=== PATIENT | female | born 1935 | race Caucasian/White ===

== ENCOUNTER 2022-05-27 13:08 | Observation (INO) | payer MEDICARE ==
--- NOTE | 2022-05-27 15:21 | XR ---
Left ankle. HISTORY: Pain following trauma. COMPARISON: None. TECHNIQUE: 3 views left ankle were obtained. FINDINGS: The osseous structures are mildly diffusely osteopenic. There is an oblique mildly displaced fracture of the distal left tibial metaphysis. The ankle mortise is intact as is the visualized portion of the fibula. The tarsal bones examination are normal IMPRESSION: Fracture of the distal left tibia as described above.
--- NOTE | 2022-05-27 15:23 | XR ---
Left knee: HISTORY: Pain following trauma. COMPARISON: None. TECHNIQUE: 3 views left knee were obtained. FINDINGS: There is mild diffuse osteopenia. There are numerous metallic clips soft tissues there is soft tissue swelling. There is a minimally displaced fracture the proximal left fibula there is a small joint effusion. The re is mild narrowing of the medial compartment. IMPRESSION: Acute fracture the proximal left fibula with soft tissue swelling and small joint effusion.
--- NOTE | 2022-05-27 17:07 | CT ---
EXAMINATION TYPE: CT brain judithine wo con DATE OF EXAM: 05/27/2022 History: Fall COMPARISON: None TECHNIQUE: CT scan of the head and cervical spine are performed without contrast.CT DLP: 1284.8 mGycm Automated exposure control for dose reduction was used. FINDINGS: There is no acute intracranial hemorrhage, mass effect, or midline shift identified. The ventricles and sulci are within normal limits for the patient's age.. The globes are intact and the visualized sinuses are clear.There is age-appropriate atrophy and moderate chronic ischemic white ma tter demyelination Cervical spine is visualized in its entirety from C1 through upper thoracic levels and demonstrates s atisfactory alignment without evidence of acute fracture or dislocation. Prevertebral soft tissue ap pears within normal limits. The C1-C2 articulation is unremarkable. There is mild to moderate arthr itic changes involving the uncovertebral joints and facet joints. IMPRESSION: 1. There is no acute fracture or dislocation evident in the cervical spine. 2. No acute intracranial hemorrhage, mass effect, or midline shift is seen.
[2022-05-27] MEDS ORDERED: NALOXONE 0.4 MG/ML 1 ML VIAL IV PRN (17:35)
[2022-05-27] MEDS ORDERED: ACETAMINOPHEN TAB 325 MG TAB PO PRN (17:35)
--- NOTE | 2022-05-27 17:44 | ED ---
Fall HPI - General Chief Complaint: Fall Stated Complaint: fall Time Seen by Provider: 05/27/22 14:16 Source: patient Mode of arrival: ambulatory - History of Present Illness Initial Comments: Patient is an 87-year-old female presenting with chief complaint of left leg pain. Patient states that last night she slipped while walking on the stairs and fell down approximately 8 stairs. There was no loss of consciousness and patient denies the use of blood thinners. Patient has no headache or neck pain today. No nausea or vomiting. No vision or hearing changes. No dizziness. No weakness, numbness, tingling. Patient is complaining of pain mainly at the left ankle and left knee. She admits to bruising and swelling. Patient lives at home by herself but has friends who come to visit. She denies any chest pain, shortness of breath, fever, chills, nausea, vomiting, abdominal pain, dysuria, hematuria. - Related Data Home Medications Medication Instructions Recorded Confirmed ALPRAZolam [Xanax] 0.25 mg PO TID PRN 05/27/22 05/27/22 Acetaminophen Tab [Tylenol Tab] 1,000 - 1,500 mg PO HS 05/27/22 05/27/22 Aspirin EC [Ecotrin Low Dose] 81 mg PO HS 05/27/22 05/27/22 Levothyroxine Sodium [Synthroid] 88 mcg PO DAILY 05/27/22 05/27/22 Propranolol HCl [Propranolol HCl 80 mg PO DAILY 05/27/22 05/27/22 ER] Allergies Allergy/AdvReac Type Severity Reaction Status Date / Time chocolate flavor AdvReac Nausea & Verified 05/27/22 13:38 Vomiting Review of Systems ROS Statement: Those systems with pertinent positive or pertinent negative responses have been documented in the HPI. ROS Other: All systems not noted in ROS Statement are negative. Past Medical History Past Medical History: Hyperlipidemia, Myocardial Infarction ([place]), Thyroid Disorder History of Any Multi-Drug Resistant Organisms: None Reported Past Surgical History: Coronary Bypass/CABG Additional Past Surgical History / Comment(s): 01/23/2008 trible bypass Past Psychological History: No Psychological Hx Reported Smoking Status: Never smoker Past Alcohol Use History: None Reported Past Drug Use History: None Reported General Exam Limitations: no limitations General appearance: alert, in no apparent distress Head exam: Present: atraumatic, normocephalic, normal inspection Eye exam: Present: normal appearance, EOMI. Absent: scleral icterus, periorbital swelling Neck exam: Present: normal inspection Respiratory exam: Present: normal lung sounds bilaterally. Absent: respiratory distress, wheezes, rales, rhonchi, stridor Cardiovascular Exam: Present: regular rate, normal rhythm, normal heart sounds. Absent: systolic murmur, diastolic murmur, rubs, gallop, clicks Left Knee exam: Present: tenderness, swelling, ecchymosis. Absent: full ROM Ankle exam: Present: tenderness, swelling, ecchymosis. Absent: full ROM Foot/Toe exam: Present: tenderness, swelling, ecchymosis. Absent: full ROM Neurovascular tendon exam: Present: no vascular compromise. Absent: sensory deficit Neurological exam: Present: alert, oriented X3, CN II-XII intact Psychiatric exam: Present: normal affect, normal mood Skin exam: Present: warm, dry, intact. Absent: rash Course Vital Signs 05/27/22 13:33 Temperature 98.1 F Pulse Rate 87 Respiratory 16 Rate Blood Pressure 127/77 O2 Sat by Pulse 98 Oximetry Medical Decision Making - Medical Decision Making Patient is an 87-year-old female presenting with chief complaint of left leg pain. Patient slipped and fell down some stairs in her home last night. No loss of consciousness or use of blood thinners. On examination there are no focal neurological deficits, the left ankle and knee are noted to be swollen, tender, and bruised. CT of the brain and cervical spine shows no acute process. X-rays show fracture of the proximal fibula minimally displaced and distal tibia minimally displaced. Patient is placed in a posterior leg splint, given that the patient lives by herself I do not think it would be safe to discharge her home at this time. I spoke with Dr. Avalos who agreed to admit the patient. I consulted Dr. Bob for medical management. I discussed these findings and the plan with the patient, she was agreeable. I discussed this case with my attending Dr. Bermudez. Disposition Clinical Impression: Fracture, fibula, proximal, Fracture of distal end of tibia Disposition: ADMITTED IP TO THIS [facility] Condition: Fair Time of Disposition: 17:44 Decision to Admit Reason: Admit from Decision Date: 05/27/22 Decision Time: 17:44
[2022-05-27] MEDS: MORPHINE SULFATE 4 MG/ML SYRINGE IV PRN (18:07)
--- NOTE | 2022-05-28 10:00 | P.HPOR ---
History of Present Illness H&P Date: 05/28/22 This patient is an 87-year-old female with a past medical history of triple bypass that presented to [facility] emergency department yesterday with complaints of left lower leg pain after a fall at home. The patient states she fell down her back stairs Sunday evening. She has been experiencing significant left lower leg pain since the fall. She presented to [facility] emergency department and x-rays were taken and revealed a left distal tibia fracture. Patient states she did hit her head when she fell, although CT of the head and neck revealed no acute fracture of cervical spine, no acute intracranial hemorrhage. Patient was admitted under the care of Dr. Avalos with a consult placed to internal medicine for medical management. Patient is examined bedside this morning. She is complaining of isolated left lower leg pain. She is currently in a splint that was placed in the emergency department. She states her pain is well-controlled at this time. She has no additional complaints or concerns. She does live along although two friends visit very regularly. She denies numbness or tingling of left lower extremity. Vital signs stable. Past Medical History Past Medical History: Hyperlipidemia, Myocardial Infarction ([place]), Thyroid Disorder Last Myocardial Infarction Date:: 09/28/2007 History of Any Multi-Drug Resistant Organisms: None Reported Past Surgical History: Coronary Bypass/CABG Additional Past Surgical History / Comment(s): 01/23/2008 trible bypass Past Psychological History: No Psychological Hx Reported Smoking Status: Never smoker Past Alcohol Use History: None Reported Past Drug Use History: None Reported Medications and Allergies Home Medications Medication Instructions Recorded Confirmed Type ALPRAZolam [Xanax] 0.25 mg PO TID PRN 05/27/22 05/27/22 History Acetaminophen Tab [Tylenol Tab] 1,000 - 1,500 mg PO HS 05/27/22 05/27/22 History Aspirin EC [Ecotrin Low Dose] 81 mg PO HS 05/27/22 05/27/22 History Levothyroxine Sodium [Synthroid] 88 mcg PO DAILY 05/27/22 05/27/22 History Propranolol HCl [Propranolol HCl 80 mg PO DAILY 05/27/22 05/27/22 History ER] Allergies Allergy/AdvReac Type Severity Reaction Status Date / Time chocolate flavor AdvReac Nausea & Verified 05/27/22 13:38 Vomiting Physical Examination On examination, patient is sitting up in bed in no apparent distress. She is alert and oriented 3. Her head appears normocephalic and atraumatic. Her breathing appears nonlabored. On inspection of her bilateral upper extremities, there are no obvious deformity or signs of trauma. On inspection of her right lower extremity, no obvious deformities or signs of trauma. On inspection the left lower extremity, there is a superficial abrasion at the anterior knee. There is a short-leg splint in place. The visible portion of the toes are warm and well-perfused with brisk capillary refill. Dorsalis pedis pulse easily palpable. Patient is able to wiggle her toes appropriately. No pain with passive range of motion of the toes. No pain with passive [id number] of the bilateral hips. Results Left ankle x-ray 05/27/22: Mildly displaced distal third tibia fracture Left knee x-ray 05/27/22: Mildly displaced proximal fibula fracture. No additional fractures identified. Assessment and Plan Assessment: Left distal third tibia fracture Left proximal fibula fracture Plan: - The clinical and imaging findings were discussed with the patient. The patient was discussed with Dr. Avalos. Recommended ORIF of the left distal tibia tomorrow morning, pending medical clearance and consent. - Keep current splint in place. Ice, elevation left leg for swelling and pain control. Strict nonweightbearing left lower extremity. - Pain management as needed. [place] 5/325mg added. - Internal medicine consultation for preoperative medical clearance. - NPO diet at midnight.
[2022-05-28] MEDS: HYDROcodone/APAP 5-325MG 1 EACH TAB PO PRN ×2 (11:00→16:42)
[2022-05-28 11:54] LABS: African American GFR (CKD) >90 (>60 ml/min/1.73 sqM); Anion Gap 10 mmol/L; Blood Urea Nitrogen 16 mg/dL (7-17); Calcium 8.9 mg/dL (8.4-10.2); Carbon Dioxide 26 mmol/L (22-30); Chloride 100 mmol/L (98-107); Glucose 100 mg/dL (74-99); Non-African American GFR(CKD) 82 (>60 ml/min/1.73 sqM); Potassium 3.9 mmol/L (3.5-5.1); Sodium 136 mmol/L (137-145)
[2022-05-28] MEDS ORDERED: ALPRAZolam 0.25 MG TAB PO PRN (12:01)
[2022-05-28 12:05] LABS: Basophils % (A) 0 %; Eosinophils # (A) 0.4 k/uL (0-0.7); Eosinophils % (A) 5 %; HCT 36.1 % (34.0-46.0); HGB 11.9 gm/dL (11.4-16.0); Lymphocytes # (A) 1.2 k/uL (1.0-4.8); Lymphocytes % (A) 18 %; MCH 35.3 pg (25.0-35.0); MCHC 32.9 g/dL (31.0-37.0); MCV 107.2 fL (80.0-100.0); Macrocytosis Moderate; Mean Platelet Volume 7.5; Monocytes # (A) 0.3 k/uL (0-1.0); Monocytes % (A) 5 %; Neutrophils # (A) 4.9 k/uL (1.3-7.7); Neutrophils % (A) 70 %; Platelet Count 228 k/uL (150-450); RBC 3.37 m/uL (3.80-5.40); RDW 11.8 % (11.5-15.5)
[2022-05-28] MEDS: ENOXAPARIN 40 MG/0.4 ML SYRINGE SQ SCH (13:01)
--- NOTE | 2022-05-28 14:00 | XR ---
EXAMINATION TYPE: XR chest 1V portable DATE OF EXAM: 05/28/2022 1:50 PM COMPARISON: Chest radiographs from 04/18/2013. TECHNIQUE: XR chest 1V portable Frontal view of the chest. CLINICAL INDICATION:Female, 87 years old with history of pre-op; FINDINGS: Lungs/Pleura: There is no evidence of pleural effusion, focal consolidation, or pneumothorax. Pulmonary vascularity: Unremarkable. Heart/mediastinum: Cardiomediastinal silhouette is enlarged and stable. Atherosclerotic calcificatio ns are seen in the aorta. Postoperative changes of mediastinal with surgical clips identified. Epicar dial leads identified. Musculoskeletal: No acute osseous pathology. Midline sternotomy wires are noted and stable. IMPRESSION: 1. No acute cardiopulmonary disease/process. 2. Cardiomegaly with postoperative changes.
--- NOTE | 2022-05-28 17:38 | P.CONS ---
History of Present Illness - Reason for Consult Consult date: 05/28/22 Medical management Requesting physician: Tomás Avalos - Chief Complaint Fall - History of Present Illness This is a very pleasant 87-year-old patient, follows with Dr. Carlton. Chronic stable medical conditions include CAD with a prior history of coronary bypass in 2007, hypothyroid, hyperlipidemia, chronic gait dysfunction uses a walker. Chronic tremors Patient took a misstep" down the stairs about 8 stairs. Did not lose consciousness or hit her head. As a result patient has acute fracture of the proximal left fibula with fracture of the distal left tibia soft tissue swelling in small joint effusion. Patient is covered. Of the left leg. Swelling of the left knee. Patient is able to get from the house with a walker. Some shortness of breath on getting up the stairs. No chest pain. Review of systems: GEN.: Tired EYES: None HEENT: Decreased hearing NECK: None RESPIRATORY: None CARDIOVASCULAR: None GASTROINTESTINAL: None GENITOURINARY: None MUSCULOSKELETAL: Joint pains LYMPHATICS: None HEMATOLOGICAL: None PSYCHIATRY: None NEUROLOGICAL: Uses a walker Past medical history to include: CAD with history of bypass in 2007, hypothyroid, hyperlipidemia, uses a walker, hard of hearing, tremors Social history: No history of smoking or alcohol. Sometimes a friend called Pito lives with her. Physical examination: VITAL SIGNS: 98.7, 99, 17, 118/61, 95% room air GENERAL: BMI 22.3, sitting up but awake not in distress. EYES: Pupils equal. Conjunctiva normal. HEENT: External appearance of nose and ears normal, oral cavity grossly normal. Decreased hearing NECK: JVD not raised; masses not palpable. HEART: First and second heart sounds are normal; no edema. LUNGS: Respiratory rate normal; clear to auscultation. ABDOMEN: Soft, nontender, liver spleen not palpable, no masses palpable. PSYCH: Alert and oriented x3; mood and affect normal. MUSCULOSKELETAL:No Clubbing/cyanosis;muscles-grossly intact. Dressing over the left lower extremity. Swelling of the left knee. Evidence of OA NEUROLOGICAL: Cranial nerves grossly intact; no facial asymmetry, power and sensation grossly intact. LYMPHATICS: No lymph nodes palpable in the axilla and neck INVESTIGATIONS, reviewed in the clinical context: WBC 7 hemoglobin 11.9 platelets 228 potassium 3.9 creatinine 0.64 EKG tracing personally reviewed by me: Normal sinus rhythm. Nonspecific T-wave changes. Chest x-ray film personally reviewed by me-some cardiomegaly Ankle x-ray: Fracture distal left tibia. X-ray left knee: Acute fracture of the proximal left fibula with soft tissue swelling. Small joint effusion. CT brain/C-spine without contrast: Negative Assessment and plan: -Left distal tibia fracture left proximal fibula fracture secondary to mechanical fall. Left leg in an Jasiel wrap. Patient due for surgery tomorrow. -Left knee effusion secondary to trauma, secondary to fall -Primary osteogenic multiple joints bilateral Pain control -CAD with a prior history of coronary bypass in 2007. Continue aspirin. No active cardiac symptoms. Continue propranolol ER. 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 Resume home medications. Subcu Lovenox fo r DVT prophylaxis. Pain control. Perioperative cardiovascular risk assessment.: Patient has somewhat limited exercise tolerance. Has known CAD. No active cardiac symptoms. Continue with aspirin. On a beta soledad to continue. Patient is a moderate risk for surgery. No coronary medications. Stable to proceed with surgery. Discussed with patient. Thank you Dr. Avalos Past Medical History Past Medical History: Hyperlipidemia, Myocardial Infarction ([place]), Thyroid Disorder Last Myocardial Infarction Date:: 09/28/2007 History of Any Multi-Drug Resistant Organisms: None Reported Past Surgical History: Coronary Bypass/CABG Additional Past Surgical History / Comment(s): 01/23/2008 trible bypass Past Psychological History: No Psychological Hx Reported Smoking Status: Never smoker Past Alcohol Use History: None Reported Past Drug Use History: None Reported Medications and Allergies Home Medications Medication Instructions Recorded Confirmed Type ALPRAZolam [Xanax] 0.25 mg PO TID PRN 05/27/22 05/27/22 History Acetaminophen Tab [Tylenol Tab] 1,000 - 1,500 mg PO HS 05/27/22 05/27/22 History Aspirin EC [Ecotrin Low Dose] 81 mg PO HS 05/27/22 05/27/22 History Levothyroxine Sodium [Synthroid] 88 mcg PO DAILY 05/27/22 05/27/22 History Propranolol HCl [Propranolol HCl 80 mg PO DAILY 05/27/22 05/27/22 History ER] Allergies Allergy/AdvReac Type Severity Reaction Status Date / Time chocolate flavor AdvReac Nausea & Verified 05/27/22 13:38 Vomiting Physical Exam Vitals: Vital Signs Temp Pulse Pulse Resp BP BP Pulse Ox 05/28/22 08:00 98.7 F 99 17 118/61 95 05/28/22 01:54 97.8 F 92 17 138/78 98 05/27/22 20:30 97.4 F L 103 H 17 135/78 96 05/27/22 13:33 98.1 F 87 16 127/77 98 Intake and Output 05/27/22 05/28/22 05/28/22 22:59 06:59 14:59 Intake Total 240 Balance 240 Intake: Oral 240 Other: Voiding Method Toilet Toilet Bedpan # Voids 1 Weight 57.153 kg Results CBC & Chem 7: 05/28/22 11:28 05/28/22 11:28
[2022-05-28] MEDS ORDERED: ASPIRIN 81 MG PO SCH (21:00)
[2022-05-28] MEDS: MORPHINE SULFATE 4 MG/ML SYRINGE IV PRN (22:14)
[2022-05-29] MEDS: LEVOTHYROXINE 88 MCG TAB PO SCH (05:53)
[2022-05-29] MEDS ORDERED: BUPIVACAINE (PF) 0.25% 30 ML VIAL SQ ONE ×2 (07:58→08:54)
[2022-05-29] MEDS ORDERED: PROPOFOL 10 MG/ML 20 ML VIAL IV ONE (08:12)
[2022-05-29] MEDS ORDERED: fentaNYL (PF) 50 MCG/ML 2 ML AMP ONE (08:12)
[2022-05-29] MEDS ORDERED: PHENYLEPHRINE-0.9% NACL SYG 1,000 MCG/10 ML SYRINGE ONE (08:12)
[2022-05-29] MEDS ORDERED: ONDANSETRON 4 MG/2 ML VIAL ONE (08:12)
[2022-05-29] MEDS ORDERED: LACTATED RINGERS 1,000 ML IV ONE (08:17)
[2022-05-29] MEDS ORDERED: SODIUM CHLORIDE 0.9% 100 ML with ceFAZolin 2,000 MG IV ONE ×2 (08:30)
[2022-05-29] MEDS ORDERED: PROPRANOLOL LA 80 MG CAP.SA.24H PO SCH (09:00)
--- NOTE | 2022-05-29 09:21 | P.OP ---
Date of Procedure: 05/29/22 Preoperative Diagnosis: Fracture left distal tibia Postoperative Diagnosis: 1. Spiral Fracture left distal tibia 2. Large effusion left knee Procedure(s) Performed: 1. Open reduction internal fixation left distal fibula 2. Aspiration left knee Implants: [employer] medial distal tibial plate with locking and nonlocking screws Anesthesia: spinal Surgeon: Tomás Avalos Hand Cloth Folder #1: Zafar Amato Estimated Blood Loss (ml): 10 Pathology: none sent Condition: stable Disposition: PACU Indications for Procedure: This is an 87-year-old female sustained a fracture of her left distal tibia with a fall at home. She presented emergency room and evaluated and admitted for surgical treatment. After discussing the surgical and nonsurgical treatment options with her at length she wished to proceed with open reduction and internal fixation of her left distal tibia and informed consent was obtained. Operative Findings: The operative findings are consistent with a spiral fracture of her left distal tibia and a large left knee effusion Description of Procedure: The patient was seen and evaluated in the preoperative area. The operative site was marked with a skin marker after the consent was reviewed. Patient was then brought to the operating room and given a spinal anesthetic by the anesthesia department. 2 g of Ancef were given intravenously preoperatively. A tourniquet was placed on left upper leg and the left lower extremity was then prepped and draped in usual sterile fashion. The left lower extremity was then exsanguinated and tourniquet insufflated to 250 mmHg. An anterior medial incision was made over the distal tibia with a skin sharp knife through the skin and subcutaneous tissue. Care was taken to avoid injuring the neurovascular structures on the medial aspect of the ankle. Incision was carried down to the fracture site which was readily visualized. The fracture was reduced and anterior medial plate was placed on the tibia with fluoroscopic x-rays confirming reduction of the fracture and placement of the plate. Screws, both locking and nonlocking were placed proximally and distally to the fracture site with excellent fixation. After all the screws been placed fluoroscopic x-rays confirmed reduction of the fracture and placement of the plate and screws. There area was then irrigated and the tourniquet was released. Hemostasis was obtained. Incision was closed with 3-0 Vicryl followed by nishi for the skin. At this time is noted very large effusion of the left knee and using an 18-gauge spinal needle the knee was aspirated. Only about 5 mL of blood was able to be aspirated, most likely due to the fact that blood is coagulated within the knee and able and unable to be aspirated. A sterile dressing was then applied to the surgical site, followed by well-padded and molded posterior splint. Patient was then transferred recovery room stable condition. The kindergarten instructional assistant AUGUSTINE Tatum was required due the complexity surgery and the need for skilled surgical tech for positioning, draping, closure, and splinting of the lower extremity. Due to the fact the patient has a very large left knee effusion with x-rays being negative, going to obtain a computed tomography scan of the left knee to rule out any occult fracture of the knee.
--- NOTE | 2022-05-29 09:27 | FL ---
Intraoperative/procedural fluoroscopic services were provided for left ankle ORIF. There is fixation plate with transverse screws involving the distal tibia. Hardware appears intact with appropriate ali gnment. Total fluoroscopy time is 12 seconds with a total of 2 submitted images to PACS. Please see t he operative note for further details.
[2022-05-29] MEDS ORDERED: HYDROmorphone 0.5 MG/0.5 ML SYRINGE IVP PRN ×3 (09:45)
[2022-05-29] MEDS ORDERED: SENNOSIDES-DOCUSATE SODIUM 1 EACH TAB PO PRN (09:45)
[2022-05-29] MEDS: ENOXAPARIN 40 MG/0.4 ML SYRINGE SQ SCH (10:02)
[2022-05-29] MEDS: HYDROcodone/APAP 5-325MG 1 EACH TAB PO PRN (11:25)
--- NOTE | 2022-05-29 14:41 | P.CRDCN ---
History of Present Illness History of present illness: This is Dr. 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 Her weight is less than 60 kg creatinine is normal and she is 87 years old Stop aspirin 325 mg by mouth twice a day Increase propranolol 120 mg by mouth daily long-acting TSH level II-D echo and Doppler study Atorvastatin 20 mg daily HPI patient presents with a fall, no syncope She presents with a left distal third tibia fracture and left proximal fibular fracture Status post ORIF Preoperatively she was in sinus rhythm/sinus tachycardia PACs Intraoperatively she went to atrial fibrillation with RVR Patient denies any chest discomfort or shortness of breath or dizziness lightheadedness or palpitations at this time She looks very comfortable She remains in atrial fibrillation with a controlled ventricular response She normally takes propranolol long-acting 80 mg by mouth daily She states she was on Coumadin the past for this. She takes only aspirin now She states this is the first time she has fallen First 12-lead EKG showed sinus mechanism with PACs Normal AR interval Fractionated QRS on the downslope in V1-V3/notching Fractionated QRS V4 through V6 Likely old anterior wall infarct ROS: No fever chills or rigors, no cough, phlegm or expectoration, no nausea, vomiting or diarrhea, no hematuria, dysuria, no musculoskeletal complaints, no strokes or seizures, no skin lesions. EXAMINATION: Initially arteries went up to 132 140 beats a minute Now her heart rates at about 100 beats a minute irregular Blood pressure 120/79 mmHg Normal breath sounds no rhonchi no crackles Heart sounds irregular no murmurs Splinted left lower extremity REVIEW OF LABS, ECG & MEDICAL DATA White count 7.0, hemoglobin 11.9, platelet count 228,000 Sodium 136, potassium 3.9 BUN 16 creatinine 0.6 Past Medical History Past Medical History: Hyperlipidemia, Myocardial Infarction (MD), Thyroid Disorder Last Myocardial Infarction Date:: 09/28/2007 History of Any Multi-Drug Resistant Organisms: None Reported Past Surgical History: Coronary Bypass/CABG Additional Past Surgical History / Comment(s): 01/23/2008 trible bypass Past Psychological History: No Psychological Hx Reported Smoking Status: Never smoker Past Alcohol Use History: None Reported Past Drug Use History: None Reported Medications and Allergies Home Medications Medication Instructions Recorded Confirmed Type ALPRAZolam [Xanax] 0.25 mg PO TID PRN 05/27/22 05/27/22 History Acetaminophen Tab [Tylenol Tab] 1,000 - 1,500 mg PO HS 05/27/22 05/27/22 History Aspirin EC [Ecotrin Low Dose] 81 mg PO HS 05/27/22 05/27/22 History Levothyroxine Sodium [Synthroid] 88 mcg PO DAILY 05/27/22 05/27/22 History Propranolol HCl [Propranolol HCl 80 mg PO DAILY 05/27/22 05/27/22 History ER] Allergies Allergy/AdvReac Type Severity Reaction Status Date / Time chocolate flavor AdvReac Nausea & Verified 05/27/22 13:38 Vomiting Physical Exam Vitals: Vital Signs Temp Pulse Resp BP BP Pulse Ox 05/29/22 10:30 101 H 16 120/79 100 05/29/22 10:15 102 H 16 132/64 98 05/29/22 10:05 132 H 16 111/81 100 05/29/22 09:50 120 H 16 103/55 100 05/29/22 09:40 97 F L 118 H 16 114/55 99 05/29/22 08:00 98.3 F 79 16 92/67 96 05/29/22 07:45 120 H 05/29/22 02:13 98.1 F 111 H 18 126/70 96 05/28/22 20:45 97.6 F 98 18 124/76 95 05/28/22 16:41 101 H 116/72 95 Intake and Output 05/28/22 05/29/22 05/29/22 22:59 06:59 14:59 Intake Total 1000 Output Total 200 10 Balance -200 990 Intake: IV 1000 Output: Urine 200 Estimated Blood Loss 10 Other: Voiding Method Toilet Bedpan # Voids 1 1 Weight 57.153 kg Results 05/28/22 11:28 05/28/22 11:28 Current Medications Generic Name Dose Route Start Last Admin Trade Name Freq PRN Reason Stop Dose Admin Acetaminophen 650 mg 05/27/22 17:35 05/28/22 08:38 Acetaminophen Tab 325 Mg Tab PO 650 mg Q6HR PRN Administration Mild Pain or Fever > 100.5 Hydrocodone Bitart/Acetaminophen 1 each 05/28/22 09:42 05/29/22 11:25 Hydrocodone/Apap 5-325mg 1 Each Tab PO 1 each Q6HR PRN Administration Pain Alprazolam 0.25 mg 05/28/22 12:01 Alprazolam 0.25 Mg Tab PO TID PRN Anxiety Enoxaparin Sodium 40 mg 05/28/22 12:15 05/29/22 10:02 Enoxaparin 40 Mg/0.4 Ml Syringe SQ Not Given DAILY LISA Hydromorphone HCl 0.125 mg 05/29/22 09:45 Hydromorphone 0.5 Mg/0.5 Ml Syringe IVP Q3HR PRN Pain Scale 1 to 3 Hydromorphone HCl 0.25 mg 05/29/22 09:45 Hydromorphone 0.5 Mg/0.5 Ml Syringe IVP Q3HR PRN Pain Scale 4 to 6 Hydromorphone HCl 0.5 mg 05/29/22 09:45 Hydromorphone 0.5 Mg/0.5 Ml Syringe IVP Q3HR PRN Pain Scale 7 to 10 Cefazolin Sodium 2 gm/ Sodium 50 mls @ 100 mls/hr 05/29/22 16:00 Chloride IVPB 05/30/22 00:29 Q8HR [facility] Protocol Levothyroxine Sodium 88 mcg 05/29/22 06:30 05/29/22 05:53 Levothyroxine 88 Mcg Tab PO 88 mcg DAILY@0630 LISA Administration Morphine Sulfate 4 mg 05/27/22 17:35 05/28/22 22:14 Morphine Sulfate 4 Mg/Ml Syringe IV 4 mg Q4HR PRN Administration Severe Pain (Scale 7 to 10) Naloxone HCl 0.2 mg 05/27/22 17:35 Naloxone 0.4 Mg/Ml 1 Ml Vial IV Q2M PRN Opioid Reversal Propranolol HCl 120 mg 05/30/22 09:00 Propranolol La 60 Mg Cap.Sa.24h PO DAILY LISA Senna/Docusate Sodium 2 each 05/29/22 09:45 Sennosides-Docusate Sodium 1 Each Tab PO HS PRN Constipation Intake and Output 05/28/22 05/29/22 05/29/22 22:59 06:59 14:59 Intake Total 1000 Output Total 200 10 Balance -200 990 Intake: IV 1000 Output: Urine 200 Estimated Blood Loss 10 Other: Voiding Method Toilet Bedpan # Voids 1 1 Weight 57.153 kg Patient Weight 05/30/22 06:59 Weight 57.153 kg 05/28/22 11:28 05/28/22 11:28
--- NOTE | 2022-05-29 15:29 | P.PN ---
Progress Note - Text Progress Note Date: 05/29/22 - Chief Complaint Fall Hospital course This is a very pleasant 87-year-old patient, follows with Dr. Carlton. Chronic stable medical conditions include CAD with a prior history of coronary bypass in 2007, hypothyroid, hyperlipidemia, chronic gait dysfunction uses a walker. Chronic tremors Patient took a misstep" down the stairs about 8 stairs. Did not lose consciousness or hit her head. As a result patient has acute fracture of the proximal left fibula with fracture of the distal left tibia soft tissue swelling in small joint effusion. Patient is covered. Of the left leg. Swelling of the left knee. Patient is able to get from the house with a walker. Some shortness of breath on getting up the stairs. No chest pain. May 29: Underwent open IM nailing of the left tibia. Postoperative been into A. fib with a rapid ventricular rate. Cardiology consulted. Telemetry. Started on eliquis. Patient has no chest pain and palpitation. Pain control. Active Medications Acetaminophen (Acetaminophen Tab 325 Mg Tab) 650 mg PO Q6HR PRN PRN Reason: Mild Pain or Fever > 100.5 Last Admin: 05/28/22 08:38 Dose: 650 mg Hydrocodone Bitart/Acetaminophen (Hydrocodone/Apap 5-325mg 1 Each Tab) 1 each PO Q6HR PRN PRN Reason: Pain Last Admin: 05/29/22 11:25 Dose: 1 each Alprazolam (Alprazolam 0.25 Mg Tab) 0.25 mg PO TID PRN PRN Reason: Anxiety Atorvastatin Calcium (Atorvastatin 20 Mg Tab) 20 mg PO DAILY [facility] Enoxaparin Sodium (Enoxaparin 40 Mg/0.4 Ml Syringe) 40 mg SQ DAILY [facility] Last Admin: 05/29/22 10:02 Dose: Not Given Hydromorphone HCl (Hydromorphone 0.5 Mg/0.5 Ml Syringe) 0.125 mg IVP Q3HR PRN PRN Reason: Pain Scale 1 to 3 Hydromorphone HCl (Hydromorphone 0.5 Mg/0.5 Ml Syringe) 0.25 mg IVP Q3HR PRN PRN Reason: Pain Scale 4 to 6 Hydromorphone HCl (Hydromorphone 0.5 Mg/0.5 Ml Syringe) 0.5 mg IVP Q3HR PRN PRN Reason: Pain Scale 7 to 10 Last Admin: 05/29/22 15:07 Dose: 0.5 mg Cefazolin Sodium 2 gm/ Sodium (Chloride) 50 mls @ 100 mls/hr IVPB Q8HR [facility]; Protocol Stop: 05/30/22 00:29 Last Admin: 05/29/22 15:08 Dose: 100 mls/hr Levothyroxine Sodium (Levothyroxine 88 Mcg Tab) 88 mcg PO DAILY@0630 [facility] Last Admin: 05/29/22 05:53 Dose: 88 mcg Morphine Sulfate (Morphine Sulfate 4 Mg/Ml Syringe) 4 mg IV Q4HR PRN PRN Reason: Severe Pain (Scale 7 to 10) Last Admin: 05/28/22 22:14 Dose: 4 mg Naloxone HCl (Naloxone 0.4 Mg/Ml 1 Ml Vial) 0.2 mg IV Q2M PRN PRN Reason: Opioid Reversal Propranolol HCl (Propranolol La 60 Mg Cap.Sa.24h) 120 mg PO DAILY [facility] Senna/Docusate Sodium (Sennosides-Docusate Sodium 1 Each Tab) 2 each PO HS PRN PRN Reason: Constipation Past medical history to include: CAD with history of bypass in 2007, hypothyroid, hyperlipidemia, uses a walker, hard of hearing, tremors Social history: No history of smoking or alcohol. Sometimes a friend called Pito lives with her. Physical examination: VITAL SIGNS: 97, 110, 16, 120/79, 100% on 2 L GENERAL: Declining in bed, not in distress EYES: Pupils equal. Conjunctiva normal. HEENT: External appearance of nose and ears normal, oral cavity grossly normal. Decreased hearing NECK: JVD not raised; masses not palpable. HEART: Heart sounds irregular; no edema. LUNGS: Respiratory rate normal; clear to auscultation. ABDOMEN: Soft, nontender, liver spleen not palpable, no masses palpable. PSYCH: Alert and oriented x3; mood and affect normal. MUSCULOSKELETAL:No Clubbing/cyanosis;muscles-grossly intact. Dressing over the left lower extremity. Swelling of the left knee. Evidence of OA INVESTIGATIONS, reviewed in the clinical context: WBC 7 hemoglobin 11.9 platelets 228 potassium 3.9 creatinine 0.64 EKG tracing personally reviewed by me: Normal sinus rhythm. Nonspecific T-wave changes. Chest x-ray film personally reviewed by me-some cardiomegaly Ankle x-ray: Fracture distal left tibia. X-ray left knee: Acute fracture of the proximal left fibula with soft tissue swelling. Small joint effusion. CT brain/C-spine without contrast: Negative Assessment and plan: -Left distal tibia fracture left proximal fibula fracture secondary to mechanical fall. Left leg in an Jasiel wrap. Patient due for surgery tomorrow. Open reduction and internal fixation of left distal tibia by Dr. Avalos on May 29 -New onset of atrial fibrillation with rapid ventricular rate. Cardiology consulted. Eliquis started. Started on Inderal LA. -Left knee effusion secondary to trauma, secondary to fall -Primary osteoarthritis multiple joints bilateral Pain control -CAD with a prior history of coronary bypass in 2007. Continue aspirin. No active cardiac symptoms. Continue propranolol ER. 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 Seen by Vivi De La Torre. Started on eliquis. Aspirin discontinued. Telemetry. 2-D echo. Thank you Dr. Avalos
--- NOTE | 2022-05-29 15:37 | CT ---
EXAMINATION TYPE: CT knee LT wo con CT DLP: 161.4 mGycm, Automated exposure control for dose reduction was used. DATE OF EXAM: 05/29/2022 2:59 PM COMPARISON: Left knee radiograph 05/27/2022. CLINICAL INDICATION:Female, 87 years old with history of trauma; PHH, Left Knee Trauma TECHNIQUE: Axial images were obtained of the left knee without the use of IV contrast. Additional co fanta and sagittal reformatted images and soft tissue and bone window were obtained for review. 3-D r econstruction was created on a separate workstation. FINDINGS: Acute comminuted fracture of the proximal fibular diaphysis with mild posterior apex angulation. Ther e is some shortening identified. Mild osteoarthritic changes of the knee with joint space narrowing a nd sclerosis and subchondral cystic formation. No joint effusion. Hyperdense collection along the medial aspect of the right knee in the soft tissues at the distal asp ect of the femur extending towards the level of the joint measuring 8.6 x 3.2 x 7.1 cm consistent wit h a hematoma. Collateral vessels demonstrated within the soft tissues. There is skin thickening of the medial aspec t of the right thigh. Postsurgical changes with surgical clips identified along the medial aspect of the right knee soft tissues. Vascular calcifications. IMPRESSION: 1. Acute comminuted fracture of the proximal left fibula. 2. Moderate size hematoma along the medial knee soft tissues.
[2022-05-29] MEDS: ATORVASTATIN 20 MG TAB PO SCH (19:51)
[2022-05-29] MEDS ORDERED: ASPIRIN 325 MG TAB PO SCH (21:00)
[2022-05-30] MEDS: LEVOTHYROXINE 88 MCG TAB PO SCH (06:13)
[2022-05-30 06:55] LABS: Basophils % (A) 0 %; Eosinophils # (A) 0.1 k/uL (0-0.7); Eosinophils % (A) 1 %; HCT 32.1 % (34.0-46.0); HGB 10.2 gm/dL (11.4-16.0); Lymphocytes % (A) 12 %; MCHC 31.8 g/dL (31.0-37.0); MCV 106.9 fL (80.0-100.0); Macrocytosis Slight; Monocytes # (A) 0.6 k/uL (0-1.0); Monocytes % (A) 7 %; Neutrophils # (A) 6.2 k/uL (1.3-7.7); Neutrophils % (A) 77 %; Platelet Count 215 k/uL (150-450); RDW 11.5 % (11.5-15.5)
[2022-05-30 07:06] LABS: African American GFR (CKD) >90 (>60 ml/min/1.73 sqM); Anion Gap 8 mmol/L; Blood Urea Nitrogen 16 mg/dL (7-17); Calcium 8.4 mg/dL (8.4-10.2); Carbon Dioxide 26 mmol/L (22-30); Chloride 101 mmol/L (98-107); Glucose 109 mg/dL (74-99); Non-African American GFR(CKD) 83 (>60 ml/min/1.73 sqM); Potassium 4.5 mmol/L (3.5-5.1); Sodium 135 mmol/L (137-145)
[2022-05-30] MEDS: ENOXAPARIN 40 MG/0.4 ML SYRINGE SQ SCH (08:50)
[2022-05-30] MEDS: PROPRANOLOL LA 60 MG CAP.SA.24H PO SCH (08:50)
[2022-05-30] MEDS: ATORVASTATIN 20 MG TAB PO SCH (08:50)
[2022-05-30] MEDS: HYDROcodone/APAP 5-325MG 1 EACH TAB PO PRN (09:10)
--- NOTE | 2022-05-30 10:20 | P.PN ---
Subjective This is a 87-year-old female past medical history, hyperlipidemia, coronary artery disease status post three-vessel bypass in 2007, hypothyroidism. We are asked to see in consultation for A. fib with RVR. Patient presented to the emergency department on 05/27/2022 after a fall at home. She was found to have a left distal tibia fracture. She underwent open reduction internal fixation left distal fibula on 05/29/2022. Postoperatively, Patient went into A. fib with RVR. Patient seen and examined at bedside, no acute distress. She denies any chest pain, palpitations, lightheadedness or dizziness. She is currently in atrial fibrillation with controlled ventricular rates. Her propranolol was increased to 120 mg daily yesterday. She has not been started on Eliquis yet. Echocardiogram is pending. GENERAL: Well-appearing, well-nourished and in no acute distress. NECK: Supple without JVD LUNGS: Breath sounds clear to auscultation bilaterally. Respiration equal and unlabored. No wheezes, rales or rhonchi. HEART: Irregular rate and rhythm without murmurs, rubs or gallops. S1 and S2 heard. EXTREMITIES: Normal range of motion, no edema. No clubbing or cyanosis. Peripheral pulses intact. ASSESSMENT Paroxysmal atrial fibrillation with RVR, postop Left distal tibia fracture left proximal fibula fracture secondary to mechanical fall Status post ORIF of left distal tibia on 05/29. Hyperlipidemia Coronary artery stenosis with previous CABG in 2007 PLAN: Recommend with ELIQUIS 2.5 mg twice daily. Her weight is less than 60 kg crea tinine is normal and she is 87 years old, Recommend starting when cleared by Ortho. Per Rachel Ariza with orthopedics ok to start Eliquis today. Eliquis sent to pharmacy, case management consultation for coverage. Continue propranolol 120 mg by mouth daily long-acting 2D echo and Doppler study Atorvastatin 20 mg daily Patient is stable from a cardiology perspective. Follow up outpatient with Dr. De La Torre on discharge. Nurse Practitioner note has been reviewed, I agree with a documented findings and plan of care. Patient was seen and examined. Objective - Vital Signs Vital signs: Vital Signs Temp 98.4 F 05/30/22 07:14 Pulse 56 L 05/30/22 07:14 Resp 18 05/30/22 07:14 BP 90/53 05/30/22 07:14 Pulse Ox 97 05/30/22 07:14 FiO2 Intake & Output 05/29/22 05/30/22 05/30/22 18:59 06:59 18:59 Intake Total 1050 Output Total 10 Balance 1040 Weight 57.153 kg Intake: IV 1000 Intake, IV Titration 50 Amount ceFAZolin 2 gm In Sodium 50 Chloride 0.9% 50 ml @ 100 mls/hr IVPB Q8HR [facility] Rx# :[id number] Output: Estimated Blood Loss 10 Other: Voiding Method Bedpan External Catheter # Voids 2 1 # Bowel Movements 1 - Labs CBC & Chem 7: 05/30/22 06:20 05/30/22 06:20 Labs: Abnormal Lab Results - Last 24 Hours (Table) 05/30/22 05/30/22 Range/Units 06:20 06:20 RBC 3.00 L (3.80-5.40) m/uL Hgb 10.2 L (11.4-16.0) gm/dL Hct 32.1 L (34.0-46.0) % MCV 106.9 H (80.0-100.0) fL Sodium 135 L (137-145) mmol/L Glucose 109 H (74-99) mg/dL
[2022-05-30] MEDS: APIXABAN 2.5 MG TABLET PO SCH (20:54)
[2022-05-31] MEDS: LEVOTHYROXINE 88 MCG TAB PO SCH (05:59)
[2022-05-31] MEDS: ATORVASTATIN 20 MG TAB PO SCH (08:01)
[2022-05-31] MEDS: APIXABAN 2.5 MG TABLET PO SCH (08:01)
[2022-05-31] MEDS: PROPRANOLOL LA 60 MG CAP.SA.24H PO SCH (08:01)
--- NOTE | 2022-05-31 09:23 | P.PN ---
Subjective This is a 87-year-old female past medical history, hyperlipidemia, coronary artery disease status post three-vessel bypass in 2007, hypothyroidism. We are asked to see in consultation for A. fib with RVR. Patient presented to the emergency department on 05/27/2022 after a fall at home. She was found to have a left distal tibia fracture. She underwent open reduction internal fixation left distal fibula on 05/29/2022. Postoperatively, Patient went into A. fib with RVR. Patient seen and examined at bedside, no acute distress. She denies any chest pain, palpitations, lightheadedness or dizziness. She is currently in atrial fibrillation with controlled ventricular rates. She is maintained on propanolol 120 mg daily and Eliquis 2.5mg BID. Echocardiogram revealed EF 35-40%, moderate mitral regurgitation and moderate tricuspid regurgitation, moderate pulmonary hypertension, mild mid to distal and apical septal hypokinesis. BP 134/60, HR 86, Temp 99.4, 97% on room air GENERAL: Well-appearing, well-nourished and in no acute distress. NECK: Supple without JVD LUNGS: Breath sounds clear to auscultation bilaterally. Respiration equal and unlabored. No wheezes, rales or rhonchi. HEART: Irregular rate and rhythm without murmurs, rubs or gallops. S1 and S2 heard. EXTREMITIES: Normal range of motion, no edema. No clubbing or cyanosis. Peripheral pulses intact. ASSESSMENT Paroxysmal atrial fibrillation with RVR, postop Left distal tibia fracture left proximal fibula fracture secondary to mechanical fall Status post ORIF of left distal tibia on 05/29. Hyperlipidemia Coronary artery stenosis with previous CABG in 2007 Cardiomyopathy, non-ischemic vs ischemic PLAN: Recommend with ELIQUIS 2.5 mg twice daily. Her weight is less than 60 kg creatinine is normal and she is 87 years old, Ok to start per Ortho. Eliquis sent to pharmacy, case management consultation for coverage. Continue propranolol 120 mg by mouth daily long-acting Atorvastatin 20 mg daily Patient is stable from a cardiology perspective. Discharge per clearance from primary and other consultants. Follow up outpatient with Dr. De La Torre on discharge within 1-2 weeks. Nurse Practitioner note has been reviewed, I agree with a documented findings and plan of care. Patient was seen and examined. Objective - Vital Signs Vital signs: Vital Signs Temp 99.4 F 05/31/22 02:00 Pulse 86 09/07/22 02:00 Resp 16 05/31/22 02:00 BP 134/60 05/31/22 02:00 Pulse Ox 97 05/31/22 02:00 FiO2 Intake & Output 05/30/22 05/31/22 05/31/22 18:59 06:59 18:59 Output Total 325 Balance -325 Output: Urine 325 Other: Voiding Method External Catheter External Catheter # Voids 1 - Labs CBC & Chem 7: 05/30/22 06:20 05/30/22 06:20
[2022-05-31 09:28] VITALS: BP 122/67; PULSE 76; RESP 14; TEMP 98.1
--- NOTE | 2022-05-31 10:21 | CA ---
Transthoracic Echo Report Name: Maame St Age: 87 Gender: F : 1935 Exam Date: 05/30/2022 13:45 Exam Location: [facility] Ht (in): 63 Wt (lb): 126 Ordering Physician: Jonn Bob MD Attending/Referring Phys: Inspector General Evelyn Linares RDCS Procedure CPT: Indications: AF Cardiac Hx: Technical Quality: Fair Contrast 1: Total Dose (mL): Contrast 2: Total Dose (mL): MEASUREMENTS (Male / Female) Normal Values 2D ECHO LV Diastolic Diameter PLAX 4.1 cm 4.2 - 5.9 / 3.9 - 5.3 cm LV Systolic Diameter PLAX 3.4 cm IVS Diastolic Thickness 1.1 cm 0.6 - 1.0 / 0.6 - 0.9 cm LVPW Diastolic Thickness 1.1 cm 0.6 - 1.0 / 0.6 - 0.9 cm LV Relative Wall Thickness 0.6 RV Internal Dim ED PLAX 2.5 cm LA Volume 61.2 cm??? 18 - 58 / 22 - 52 cm??? M-MODE Aortic Root Diameter MM 3.2 cm LA Systolic Diameter MM 3.2 cm LA Ao Ratio MM 1.0 AV Cusp Separation MM 1.8 cm DOPPLER AV Peak Velocity 162.4 cm/s AV Peak Gradient 10.6 mmHg AI Peak Velocity 475.1 cm/s AI Peak Gradient 90.3 mmHg AI Pressure Half Time 659.2 ms LVOT Peak Velocity 83.9 cm/s LVOT Peak Gradient 2.8 mmHg MV Peak Velocity 211.5 cm/s MV Peak Gradient 17.9 mmHg MV Mean Velocity 112.0 cm/s MV Mean Gradient 6.3 mmHg MV Velocity Time Integral 37.5 cm MV Area PHT 2.9 cm??? Mitral E Point Velocity 170.9 cm/s Mitral A Point Velocity 43.3 cm/s Mitral E to A Ratio 3.9 MV Deceleration Time 239.0 ms TR Peak Velocity 376.4 cm/s TR Peak Gradient 56.7 mmHg Right Ventricular Systolic Press 59.9 mmHg FINDINGS Left Ventricle Mildly increased left ventricular wall thickness. Moderately reduced global left ventricular systolic function. Abnormal (paradoxical) septal motion consistent with postoperative state. Left ventricular ejection fraction is estimated at 35-40%. There is also mild mid to distal and apical septal hypokinesis. Right Ventricle Normal right ventricular size and function. Moderate to severe pulmonary hypertension. Right Atrium Normal right atrial size. Left Atrium Mildly increased left atrial volume. Mitral Valve Severe mitral annular calcification. Mitral valve thickened. Mild mitral stenosis. Moderate mitral regurgitation. Aortic Valve No aortic stenosis. Mild aortic regurgitation. Aortic valve sclerosis. Tricuspid Valve Structurally normal tricuspid valve. [id number] tricuspid regurgitation. Pulmonic Valve Trace pulmonic regurgitation. Pericardium No pericardial effusion. Echo free space anterior to the right ventricle likely represents a fat pad. Aorta Normal size aortic root and proximal ascending aorta. CONCLUSIONS Mild to moderate impairment of LV function noted with evidence of some septal hypokinesia. Mild calcific mitral stenosis with moderate regurgitation and moderate tricuspid regurgitation and moderate pulmonary hypertension. No pericardial effusion Previewed by: Dr. Debbie Rachel MD (Electronically Signed) Final Date: 31 May 2022 10:21
--- NOTE | 2022-05-31 10:35 | P.DS ---
Providers Date of admission: 05/27/22 19:18 Expected date of discharge: 05/31/22 Attending physician: Tomás Avalos Consults: 05/27/22 17:35 Consult Physician Urgent Consulting Provider: Jonn Bob Consult Reason/Comments: Medical management Do you want consulting provider notified?: Yes 05/29/22 09:44 Consult Physician Routine Consulting Provider: Lauro De La Torre Consult Reason/Comments: abnormal rhythm intra-op Do you want consulting provider notified?: Yes Primary care physician: [facility] Course: This is an 87-year-old female who sustained a ground level fall. She presented to [facility] emergency department on 05/27/22 for evaluation. X-rays in the emergency department revealed a left distal tibia fracture. Patient was admitted under the care of Dr. Avalos for surgical intervention. Internal medicine was consulted for perioperative medical management. Patient underwent an open reduction internal fixation of left distal tibia fracture on 05/29/22. The procedure was performed without complication or sequelae. The patient is doing fairly well postoperatively. Vital signs and labs are stable on postoperative day #2. Patient did go into A fib with RVR intra-op and cardiology was consulted. Patient was started on Eliquis per caridology recommendations. Patient was examined bedside today. Patient states she is doing well and has no specific complaints. Her pain is well-controlled on oral medications. Patient is tolerating her diet well. She denies chest pain, shortness of breath, nausea, vomiting, fevers, chills. No new complaints or concerns on the day of discharge. On examination, the patient is sitting up in bed. She is alert and oriented 3. On inspection of the left lower extremity, there is a clean, dry, intact posterior splint in place. The visible portion of the toes are warm and well perfused with brisk capillary refill. Patient is able to wiggle toes without issue. No pain with passive range of motion of the toes. Patient is discharged home to rehab today good condition, pending medical clearance. Patient will follow-up with Dr. Avalos in the office in 2 weeks. Please see med rec for accurate list of discharge medication. Patient Condition at Discharge: Fair Plan - Discharge Summary Discharge Rx Participant: Yes New Discharge Prescriptions: New HYDROcodone/APAP 5-325MG [Marlin 5-325] 1 tab PO Q6HR PRN 7 Days #30 tab PRN Reason: Pain Docusate [Colace] 100 mg PO BID #60 capsule Apixaban [Eliquis] 2.5 mg PO BID #60 tab Discontinued Aspirin EC [Ecotrin Low Dose] 81 mg PO HS Propranolol HCl [Propranolol HCl ER] 80 mg PO DAILY No Action Acetaminophen Tab [Tylenol Tab] 1,000 - 1,500 mg PO HS ALPRAZolam [Xanax] 0.25 mg PO TID PRN PRN Reason: Anxiety Levothyroxine Sodium [Synthroid] 88 mcg PO DAILY Discharge Medication List ALPRAZolam [Xanax] 0.25 mg PO TID PRN 05/27/22 [History] Acetaminophen Tab [Tylenol Tab] 1,000 - 1,500 mg PO HS 05/27/22 [History] Levothyroxine Sodium [Synthroid] 88 mcg PO DAILY 05/27/22 [History] Apixaban [Eliquis] 2.5 mg PO BID #60 tab 05/30/22 [Rx] Docusate [Colace] 100 mg PO BID #60 capsule 05/31/22 [Rx] HYDROcodone/APAP 5-325MG [Marlin 5-325] 1 tab PO Q6HR PRN 7 Days #30 tab 05/31/22 [Rx] Follow up Appointment(s)/Referral(s): Lauro De La Torre MD [STAFF PHYSICIAN] - 2 Weeks (Follow-up with Ailyn Robles/Dr. Dove) Lowell Carlton DO [Primary Care Provider] - 1-2 days Tomás Avalos DO [Doctor of Osteopathic Medicine] - 2 Weeks Activity/Diet/Wound Care/Special Instructions: Non-weight bearing operative extremity. Keep splint in place until follow-up in the office. Keep operative extremity elevated for swelling control. Take pain medications as needed. Eliquis per internal medicine for DVT prophylaxis. Follow-up with Dr. Avalos in the office in two weeks. Call the office with any questions or concerns, Eliquis prescription at [facility] $36 will be patient cost. Discharge Disposition: TRANSFER TO SNF/ECF
--- NOTE | 2022-05-31 17:21 | P.PN ---
Progress Note - Text Progress Note Date: 05/30/22 - Chief Complaint Fall Hospital course This is a very pleasant 87-year-old patient, follows with Dr. Carlton. Chronic stable medical conditions include CAD with a prior history of coronary bypass in 2007, hypothyroid, hyperlipidemia, chronic gait dysfunction uses a walker. Chronic tremors Patient took a misstep" down the stairs about 8 stairs. Did not lose consciousness or hit her head. As a result patient has acute fracture of the proximal left fibula with fracture of the distal left tibia soft tissue swelling in small joint effusion. Patient is covered. Of the left leg. Swelling of the left knee. Patient is able to get from the house with a walker. Some shortness of breath on getting up the stairs. No chest pain. May 29: Underwent open IM nailing of the left tibia. Postoperative been into A. fib with a rapid ventricular rate. Cardiology consulted. Telemetry. Started on eliquis. Patient has no chest pain and palpitation. Pain control. May 30: Hospital computer system down. Oral intake fair. Some pain. Breathing stable. Discussed with the patient. Pending DC to rehab. Propranolol long-acting was increased to 120 yesterday. May 31: No chest pain or short of breath. Atrial fibrillation, controlled. Oral intake fair. Going to rehab today. Current medications reviewed Past medical history to include: CAD with history of bypass in 2007, hypothyroid, hyperlipidemia, uses a walker, hard of hearing, tremors Social history: No history of smoking or alcohol. Sometimes a friend called Pito lives with her. Physical examination: VITAL SIGNS: 98.1, 76, 14, 1 22 x 67, 98% room air GENERAL: reclining in bed, comfortable EYES: Pupils equal. Conjunctiva normal. HEENT: External appearance of nose and ears normal, oral cavity grossly normal. Decreased hearing NECK: JVD not raised; masses not palpable. HEART: Heart sounds irregular; no edema. LUNGS: Respiratory rate normal; clear to auscultation. ABDOMEN: Soft, nontender, liver spleen not palpable, no masses palpable. PSYCH: Alert and oriented x3; mood and affect normal. MUSCULOSKELETAL:No Clubbing/cyanosis;muscles-grossly intact. Dressing over the left lower extremity. Swelling of the left knee. Evidence of OA INVESTIGATIONS, reviewed in the clinical context: 2-D echocardiogram: EF 35-40%. May 30: White count 18 globin 10.2 potassium 4.5 WBC 7 hemoglobin 11.9 platelets 228 potassium 3.9 creatinine 0.64 EKG tracing personally reviewed by me: Normal sinus rhythm. Nonspecific T-wave changes. Chest x-ray film personally reviewed by me-some cardiomegaly Ankle x-ray: Fracture distal left tibia. X-ray left knee: Acute fracture of the proximal left fibula with soft tissue swelling. Small joint effusion. CT brain/C-spine without contrast: Negative Assessment and plan: -Left distal tibia fracture left proximal fibula fracture secondary to mechanical fall. Left leg in an Jasiel wrap. Patient due for surgery tomorrow. Open reduction and internal fixation of left distal tibia by Dr. Avalos on May 29 -. Paroxysmal atrial fibrillation, rate controlled Cardiology consulted. Eliquis Inderal LA. 120 mg -Left knee effusion secondary to trauma, secondary to fall -Primary osteoarthritis multiple joints bilateral Pain control. -Chronic congestive heart failure from systolic dysfunction EF 35-40%. Follow with cardiology. -CAD with a prior history of coronary bypass in 2007. No active cardiac symptoms. Continue propranolol ER. -Hypothyroid Synthroid 88 g a -Anxiety not otherwise specified Xanax 0.25 mg 3 times a day when necessary -Chronic gait dysfunction, uses a walker at the baseline -Chronic intentional tremor Continue propranolol Continue current medications. Patient going to rehab today. Discussed with nurse and the patient. Patient should follow with cardiology outpatient. Thank you Dr. Avalos
--- NOTE | 2022-06-01 10:11 | P.PN ---
Subjective Progress Note Date: 05/30/22 This is an 87-year-old female who is status post ORIF left distal tibia and aspiration of the left knee. This is postoperative day #1 and patient is seen and evaluated at bedside with Dr. Tomás Avalos. The patient denies any pain or new complaints today. Objective - Vital Signs Vital signs: Vital Signs Temp 98.1 F 05/31/22 08:00 Pulse 76 05/31/22 08:00 Resp 14 05/31/22 08:00 BP 122/67 05/31/22 08:00 Pulse Ox 98 05/31/22 08:00 FiO2 - Exam Vital signs are stable. Patient is in no acute distress and is alert and oriented 3. Calf is soft and nontender to palpation.Splint is clean, dry and intact. Capillary refill is normal at less than 2 seconds. Sensation intact. Neurovascular status and circulatory status are intact. - Labs CBC & Chem 7: 05/30/22 06:20 05/30/22 06:20 Assessment and Plan (1) Fracture of distal end of tibia Status: Acute Code(s): S82.309A - UNSP FRACTURE OF LOWER END OF UNSP TIBIA, INIT FOR CLOS FX SNOMED Code(s): 698416860 Plan: 1. Maintain splint. Rest and elevate for swelling. 2. DVT prophylaxis per internal medicine. Appreciate input from internal medicine. 3. Nonweightbearing to the left lower extremity. 4. CT of the left knee shows: 1. Acute comminuted fracture of the proximal left fibula. 2. Moderate size hematoma along the medial knee soft tissues. 5. Anticipate discharge home or to ECF in the next 24-48 hours.
== END 2022-05-31 14:45 ==
LOC: EC 13:08 → 4SSUR 19:18
PROVIDERS: ADMIT Orthopaedic Surgery; ATTEND Orthopaedic Surgery
DX: S82.302A Unspecified fracture of lower end of left tibia, initial encounter for closed fracture (principal); S82.832A Other fracture of upper and lower end of left fibula, initial encounter for closed fracture; W10.9XXA Fall (on) (from) unspecified stairs and steps, initial encounter; Y92.009 Unspecified place in unspecified non-institutional (private) residence as the place of occurrence of the external cause; M25.462 Effusion, left knee; E78.5 Hyperlipidemia, unspecified; I25.10 Atherosclerotic heart disease of native coronary artery without angina pectoris; E03.9 Hypothyroidism, unspecified; R26.9 Unspecified abnormalities of gait and mobility; F41.9 Anxiety disorder, unspecified; R25.1 Tremor, unspecified; I48.0 Paroxysmal atrial fibrillation; I25.2 Old myocardial infarction; Z95.1 Presence of aortocoronary bypass graft; Z79.82 Long term (current) use of aspirin; Z79.890 Hormone replacement therapy; Z79.899 Other long term (current) drug therapy
CPT/HCPCS: 93306; 93005 ×2; 97530 ×2; 97162; 97166; 80048 ×2; 85025 ×2; 73562; 73600; 73610; 71045; 72125; 70450; 73700; 27827; 20610; G0378 ×5; C1713; J2270 ×2; J0690 ×2; J1650 ×2; J1170; 96375; 99285